=== PATIENT | female | born 1940 | race Two or more races ===

== ENCOUNTER 2022-08-17 08:03 | Outpatient (CLI) | payer OTHER ==
[~2022-08-17 08:03] MED LIST: MACROBID 100 M100 MG PO; ULTRACET PO
== END 2022-08-17 08:11 | disposition home or self-care (01) ==
LOC: RAD 08:03
PROVIDERS: ATTEND Psychiatry & Neurology Clinical Neurophysiology
DX: F01.50 Vascular dementia, unspecified severity, without behavioral disturbance, psychotic disturbance, mood disturbance, and anxiety (principal); G91.0 Communicating hydrocephalus; E11.65 Type 2 diabetes mellitus with hyperglycemia; D69.6 Thrombocytopenia, unspecified; E04.2 Nontoxic multinodular goiter
CPT/HCPCS: 70551

== ENCOUNTER 2022-09-06 08:58 | Outpatient (CLI) | payer OTHER | END 2022-09-06 09:01 | disposition home or self-care (01) | LOC: RAD 08:58 | PROVIDERS: ATTEND Physical Medicine & Rehabilitation Pediatric Rehabilitation Medicine | DX: M15.0 Primary generalized (osteo)arthritis (principal); S83.282A Other tear of lateral meniscus, current injury, left knee, initial encounter; M54.15 Radiculopathy, thoracolumbar region; M54.16 Radiculopathy, lumbar region ==

== ENCOUNTER 2024-06-09 07:32 | Inpatient (IN) | payer OTHER ==
[~2024-06-09] VITALS: Ht 149.9 cm; Wt 50.8 kg
[~2024-06-09 07:32] MED LIST changes: +ARICEPT5 MG PO; +CARVEDILOL6.25 MG; +GRALISE600 MG PO; +INSULIN AS100 UNIT/1; +TRADJENTA5 MG PO; +XANAX1 MG PO
[2024-06-09] MEDS ORDERED: CEFTRIAXONE SODIUM 2,000 MG VIAL ONE (09:57)
[2024-06-09] MEDS ORDERED: POVIDONE-IODINE 118 ML BOTT TOP ONE (09:57)
[2024-06-09] MEDS ORDERED: LIDOCAINE HCL 1%/EPINEPHRINE 20ML VIAL IJ ONE (09:57)
[2024-06-09] MEDS ORDERED: DIBUCAINE 30 GM TUBE ONE (09:57)
[2024-06-09] MEDS ORDERED: METRONIDAZOLE/SODIUM CHLORIDE 500 MG/100 ML PIGGYBACK IV ONE (09:57)
[2024-06-09] MEDS ORDERED: CHLORHEXIDINE GLUCONATE 120 ML BOTTLE TOP ONE ×2 (10:00→10:04)
[2024-06-09] MEDS ORDERED: HEMOSTATIC MATRIX 1 KIT KIT TOP ONE (11:10)
[2024-06-09] MEDS ORDERED: DEXTROSE 50 % IN WATER 0.5 G/ML DISP.SYRIN IV PRN (11:30)
[2024-06-09] MEDS ORDERED: ONDANSETRON HCL 2 MG/ML VIAL IV PRN (11:30)
[2024-06-09] MEDS ORDERED: MORPHINE SULFATE 4 MG/ML CARTRIDGE IV PRN (11:30)
[2024-06-09] MEDS ORDERED: RINGERS SOLUTION,LACTATED 1,000 ML IV SCH (11:30)
[2024-06-09] MEDS ORDERED: OxyCODONE HCL 5 MG TABLET (ROXICODONE) PO PRN (11:30)
[2024-06-09] MEDS ORDERED: HYOSCYAMINE SULFATE 0.125 MG TAB.SUBL SL SCH (13:00)
[2024-06-09] MEDS ORDERED: ACETAMINOPHEN 500 MG GEL..CAP PO SCH (14:00)
[2024-06-09] MEDS ORDERED: GABAPENTIN 300 MG CAPSULE PO SCH (17:00)
[2024-06-09] MEDS ORDERED: FAMOTIDINE/PF 20 MG/2 ML VIAL IV PUSH SCH (21:00)
[2024-06-10] MEDS ORDERED: INTESTINEX680 M1 PO (08:27)
[2024-06-10] MEDS ORDERED: LACTOBACILLUS ACIDOPHILUS 1 CAP CAP PO SCH (09:00)
[2024-06-10] MEDS ORDERED: ENOXAPARIN SODIUM 40 MG/0.4 ML SYRINGE SUBCUTANEO SCH (17:00)
[2024-06-11] MEDS ORDERED: ENOXAPARIN SODIUM 40 MG/0.4 ML SYRINGE SUBCUTANEO SCH (09:00)
== END 2024-06-10 11:07 | disposition home or self-care (01) | DRG 748 ==
LOC: CIR.AMB 07:32 → O/R 11:57 → SURH 12:10
PROVIDERS: ADMIT Surgery; ATTEND Surgery
PROC: 3E0T3BZ Introduction of Anesthetic Agent into Peripheral Nerves and Plexi, Percutaneous Approach (ICD-10-PCS; 2024-06-09)
PROC: 0JQC0ZZ Repair Pelvic Region Subcutaneous Tissue and Fascia, Open Approach (ICD-10-PCS; principal; 2024-06-09 07:00)
DX: N81.6 Rectocele (principal); Z20.822 Contact with and (suspected) exposure to COVID-19

== ENCOUNTER 2024-09-08 10:15 | Outpatient (CLI) | payer OTHER ==
[~2024-09-08 10:15] MED LIST changes: +INTESTINEX680 M1 PO
== END 2024-09-08 10:20 | disposition home or self-care (01) ==
LOC: RAD 10:15
DX: M54.2 Cervicalgia (principal); N18.31 Chronic kidney disease, stage 3a; I12.9 Hypertensive chronic kidney disease with stage 1 through stage 4 chronic kidney disease, or unspecified chronic kidney disease

== ENCOUNTER → 2025-11-10 | Outpatient (CLI) | payer OTHER | END | disposition home or self-care (01) | LOC: SONOGRAMA 10:47 | DX: E04.2 Nontoxic multinodular goiter (principal) ==